=== PATIENT | male | born 1970 | race Caucasian/White ===

== ENCOUNTER → 2017-10-30 | Emergency (ER) | payer OTHER ==
[~2017-10-30] VITALS: Ht 182.9 cm; Wt 90.7 kg
== END | disposition home or self-care (01) ==
LOC: ER 15:10
DX: S01.02XA Laceration with foreign body of scalp, initial encounter (principal); W26.8XXA Contact with other sharp object(s), not elsewhere classified, initial encounter; Y93.89 Activity, other specified; Y92.69 Other specified industrial and construction area as the place of occurrence of the external cause; Y99.8 Other external cause status

== ENCOUNTER 2023-01-30 13:01 | Outpatient (CLI) | payer OTHER | END 2023-01-30 13:04 | disposition home or self-care (01) | LOC: RAD 13:01 | PROVIDERS: ATTEND General Practice | DX: R06.02 Shortness of breath (principal); Z57.2 Occupational exposure to dust; Z13.88 Encounter for screening for disorder due to exposure to contaminants ==

== ENCOUNTER 2024-11-26 07:11 | Emergency (ER) | payer OTHER ==
[~2024-11-26] VITALS: Ht 182.9 cm; Wt 90.7 kg
[2024-11-26 07:41] VITALS: BP 138/88; O2SAT 97
[2024-11-26] MEDS ORDERED: NORVASC2.5 MG (07:42)
[2024-11-26] MEDS ORDERED: TRAMADOL HCL 50 MG TABLET PO ONE (09:00)
[2024-11-26] MEDS ORDERED: ACETAMINOPHEN 500 MG GEL..CAP PO ONE ×2 (09:12→09:15)
== END 2024-11-26 12:03 | disposition home or self-care (01) ==
LOC: ER 07:12
DX: S60.222A Contusion of left hand, initial encounter (principal); X58.XXXA Exposure to other specified factors, initial encounter; Y93.89 Activity, other specified; Y92.9 Unspecified place or not applicable; Y99.9 Unspecified external cause status

== ENCOUNTER 2025-03-31 11:38 | Outpatient (CLI) | payer OTHER ==
[~2025-03-31 11:38] MED LIST: NORVASC2.5 MG
== END 2025-03-31 11:42 | disposition home or self-care (01) ==
LOC: RAD 11:38
PROVIDERS: ATTEND General Practice
DX: R06.02 Shortness of breath (principal); Z57.2 Occupational exposure to dust; Z13.88 Encounter for screening for disorder due to exposure to contaminants